=== PATIENT | male | born 1985 | race Caucasian/White ===

== ENCOUNTER 2019-11-08 08:28 | Emergency (ER) | payer MEDICAID, SELFPAY ==
[2019-11-08 08:32] VITALS: BP 153/84; PULSE 65; RESP 18; TEMP 36.6; O2SAT 99
--- NOTE | 2019-11-08 08:38 | ED.GENADUL_ITS ---
Discharge Plan Disposition Patient Disposition: HOME Condition: Stable Discharge Details Chief Complaint: EyeProblem Clinical Impression: Bacterial conjunctivitis Primary Care Provider: Garo Mohamud ED Provider: Manuela Gutierrez Home Meds and New Rx's Prescriptions: New tobramycin 0.3 % drops 2 drp OP QID 5 Days Qty: 5 RF: 0 Continued metformin 500 MG tablet 500 mg PO BID@0800,1700 Qty: 30 RF: 0 dextroamphetamine-amphetamine 20 mg capsule,extended release 24hr 20 mg PO BID RF: 0 Discharge Instructions Instructions: Conjunctivitis (ED) Additional Instructions: Use the antibiotic eyedrops as directed. Pinkeye or bacterial conjunctivitis is very contagious. Be sure to wash your hands frequently and avoid rubbing your eye and then touching other objects or surfaces. Call your primary care doctor's office today to schedule a follow-up appointment for reevaluation and to inquire about obtaining a new diabetic meter. Return immediately to the emergency department if you develop any worsening or new concerning symptoms. Stand Alone Forms: Work Release Discharge Data Discharge Physician: Manuela Gutierrez Medical Decision Making 33-year-old male with a history of diabetes, asthma hypertension presents with bilateral eye irritation, worse on right side with yellow goopy discharge which is worse in the morning. OU 20/25, OD 20/30, OS 20/30. Fingerstick glucose 136 He has bilateral conjunctival injection, worse on right side. No discharge noted on exam at this time. PERRLA. EOMI. History and presentation appears consistent with bacterial conjunctivitis. History not consistent with foreign body or corneal abrasion glaucoma, uveitis. We will send with a prescription for tobramycin as he is a contact lens wearer. He states his diabetic glucometer is no longer working and he recently obtained this. Advised to call his PCP for follow-up and for another glucometer. Usual and customary return precautions given prior to discharge. HPI General Mode of arrival: ambulatory . Date/Time Provider Initiated Documentation: 11/08/19 08:30 . Limitations to Documentation: no limitations . Information obtained by: patient . HPI Narrative: Patient is a 33-year-old male with a history of diabetes, asthma and hypertension who presents with 2 days of right eye irritation, blurry vision and yellow goopy discharge. He is now complaining of symptoms of irritation in his left eye. He states he started wearing new contacts 1 week ago. He states he has had them in 24 hours a day for the past week and has not changed them. He states they are self lubricating but he also applies drops as needed. He has teenagers at home but denies any known sick contacts. 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 He denies any fever, headache, dizziness. He also denies any history of injury to his eye or foreign body sensation. He is denying any significant pain in his eye. Related Data Home Medications Medication Instructions Recorded Confirmed metformin 500 mg PO BID@0800,1700 #30 tab 05/17/15 11/08/19 dextroamphetamine-amphetamine 20 mg PO BID 11/08/19 11/08/19 tobramycin 2 drp OP QID 5 Days #5 ml 11/08/19 Previous Rx's Medication Instructions Recorded metformin 500 mg PO BID@0800,1700 #30 tab 05/17/15 tobramycin 2 drp OP QID 5 Days #5 ml 11/08/19 Allergies Allergy/AdvReac Type Severity Reaction Status Date / Time No Known Allergies Allergy Unverified 11/08/19 08:34 General Stated Complaint: EyeProblem BEAU: 4 Review of Systems All systems reviewed & are unremarkable except as noted in HPI and below Constitutional Constitutional: Reports as per HPI, Denies chills, Denies fever(s) and Denies headache(s) Eyes Eyes: Reports blurry vision, Reports eye discharge and Reports irritation ENT Ears, Nose, Mouth, and Throat: Denies dizziness, Denies headache(s), Denies sore throat and Denies throat swelling Cardiovascular Cardiovascular: Denies chest pain and Denies dyspnea Respiratory Respiratory: Denies cough and Denies dyspnea Gastrointestinal Gastrointestinal: Denies abdominal pain, Denies diarrhea and Denies vomiting Genitourinary Genitourinary: Denies hematuria and Denies dysuria Musculoskeletal Musculoskeletal: Denies back pain and Denies numbness Integumentary/Breasts Skin/Breast: Denies lesions and Denies rash Neurologic Neurologic: Denies dizziness, Denies headache(s), Denies localized weakness and Denies numbness Allergic/Immunologic Allergic/Immunologic: Denies throat swelling [facility] Medical History (Updated 11/08/19 @ 08:51 by Manuela Gutierrez DO) ADHD (Acute) Diabetes (Chronic) Surgical History (Updated 11/08/19 @ 09:01 by Manuela Gutierrez DO) History of testicular surgery (Acute) Social History Smoking/Tobacco Use Status: Current every day Tobacco Type: cigarettes Alcohol Intake: never Drug use: Occasionally Substance use type: marijuana Do you feel safe at home: Yes Do you feel safe in your relationship?: Yes Exam Const General: cooperative, healthy appearing and no acute distress HENMT Head: normal to inspection Mouth: oral mucosae normal Eyes General: appearance normal, both eyes and all related structures Periorbital: periorbital findings normal Eyelids: eyelids normal Conjunctivae: conjunctival abnormality bilaterally conjunctival injection diffuse (mild) Pupils: PERRL EOM: EOM intact bilaterally Other: No foreign body noted. Neck Neck: normal visual inspection Resp Effort & Inspection: normal respiratory effort and able to speak in complete sentences Cardio Rate: regular rate Skin General skin exam: no rashes or lesions noted Neuro General: patient alert, patient awake and patient oriented x3 Motor: muscle tone normal throughout Extrem General: normal to inspection and full ROM Psych Appearance: grossly normal Affect: normal affect Course Vital Signs Vital signs: Vital Signs Temperature 97.9 F 11/08/19 08:32 Pulse 65 11/08/19 08:32 Respiratory Rate 18 11/08/19 08:32 Blood Pressure 153/84 H 11/08/19 08:32 Pulse Oximetry 99 11/08/19 08:32 Temperature 97.9 F 11/08/19 08:32 Temperature Source Skin 11/08/19 08:32 Pulse 65 11/08/19 08:32 Respiratory Rate 18 11/08/19 08:32 Blood Pressure 153/84 H 11/08/19 08:32 Blood Pressure Position Sitting 11/08/19 08:32 Pulse Oximetry 99 11/08/19 08:32 Oxygen Delivery Method Room Air 11/08/19 08:32 Oxygen Flow Rate 0 11/08/19 08:32 Pain Level 0 11/08/19 08:32
[2019-11-08 09:00] VITALS: BP 153/84; PULSE 65; RESP 18; TEMP 36.6; O2SAT 99
== END 2019-11-08 09:00 | disposition home or self-care (01) ==
PROVIDERS: Emergency Provider Physician Assistant; PCP Neuromusculoskeletal Medicine & OMM
DX: H10.022 Other mucopurulent conjunctivitis, left eye (principal); I10 Essential (primary) hypertension; E11.9 Type 2 diabetes mellitus without complications
CPT/HCPCS: 36416; 82962; 99283